=== PATIENT | male | born 1975 | race Two or more races ===

== ENCOUNTER 2022-10-01 05:41 | Day surgery (SDC) | payer OTHER ==
[~2022-10-01 05:41] MED LIST: [UNRECOGNIZED DRUG - CODE] PO
== END 2022-10-01 18:05 | disposition home or self-care (01) ==
LOC: CIR.AMB 05:41
PROVIDERS: ATTEND Otolaryngology Otology & Neurotology
DX: H71.01 Cholesteatoma of attic, right ear (principal); Z20.822 Contact with and (suspected) exposure to COVID-19; D68.9 Coagulation defect, unspecified; F17.210 Nicotine dependence, cigarettes, uncomplicated

== ENCOUNTER 2023-01-21 05:30 | Day surgery (SDC) | payer OTHER | END 2023-01-21 14:45 | disposition home or self-care (01) | LOC: CIR.AMB 05:30 | PROVIDERS: ATTEND Otolaryngology Otology & Neurotology | DX: H71.22 Cholesteatoma of mastoid, left ear (principal); H90.2 Conductive hearing loss, unspecified; D68.9 Coagulation defect, unspecified; Z20.822 Contact with and (suspected) exposure to COVID-19 ==